=== PATIENT | female | born 1995 | race Caucasian/White ===

== ENCOUNTER 2018-08-05 19:36 | Emergency (ER) | payer MEDICAID ==
[2018-08-05] MEDS ORDERED: ACETAMINOPHEN 500 MG TAB PO ONE (20:06)
[2018-08-05] MEDS ORDERED: LIDOCAINE 4%/MENTHOL 1% PATCH TD ONE (20:06)
[2018-08-05] MEDS ORDERED: fentaNYL 100 MCG/2 ML INJ IVP ONE (20:06)
[2018-08-05] MEDS ORDERED: DIAZEPAM 5 MG TAB PO ONE (20:06)
--- NOTE | 2018-08-05 20:14 | EDPHY ---
General Time Seen by Provider: 08/05/18 19:43 Narrative: CLINICAL IMPRESSION: Right-sided lumbar back strain ASSESSMENT/PLAN: 23-year-old obese female presents to the emergency department with 1 day of atraumatic right low back pain. Patient is tearful and uncomfortable appearing on arrival but nontoxic. No associated fever. She has no midline pain and no reported history of manipulation or surgery to the low back. No associated bowel or bladder incontinence, saddle anesthesia, urinary retention, gait intolerance, foot drop, paresthesias to the lower extremities, abdominal pain, UTI symptoms, hematuria or fever. Pain is reproducible to palpation and worsened by range of motion. Intact distal neurovascular exam in DTRs. Patient received IV analgesics with improvement in her symptoms. I do not suspect this patient has cauda equina, epidural abscess, occult infection, meningitis, nor do I feel she needs an emergent MRI scan. She was given a referral to Neurosurgery and advised to follow up with primary care. Warning signs return to ED sooner discussed in discharge. DIFFERENTIAL DX: Differential diagnosis includes but not limited to muscular pain, herniated disc, spine fracture, cauda equina, epidural abscess, infectious causes, intra- abdominal causes, pyelonephritis and urinary tract infection. ED PROCEDURES: See lab and/or imaging results below NON-traumatic Back Pain Pathway--Low/medium concern for Acute Spinal Emergency ( ASE) High Sensitivity Neuro Exam (HSNE) Cervical pain C1-4: sensation back of head/neck no unilateral decrease in sensation. C5: Deltoid (motor) no unilateral weakness or deficit. C6: Biceps (motor) no unilateral weakness or deficit. C7: Extend wrist/fingers no unilateral weakness or deficit C8: Flex fingers no unilateral weakness or deficit Thoracic pain T1: move fingers apart no unilateral deficit. T2-12: trunk sensationno unilateral deficit. Lumbar pain L1: inner thigh sensation no unilateral weakness or deficits. L2: ADduct thigh (cross legs) no unilateral weakness or deficits. L3: Extend knee no unilateral weakness or deficits. L4: Ankle dorsiflexion no unilateral weakness or deficits. L5: Great toe extension no unilateral weakness or deficits. S1: Flex knee no unilateral weakness or deficits. S3-4: bladder/bowel function no dysfunction. NO DEFICITS = Check Red Flags MINOR (1 pt each) Alcohol abuse 0 points DM 0 points Renal failure 0 point Night pain 0 point 3rd visit in <= 20 days 0 point MAJOR (3 pts each) IVDA no Fever without focus no Recent/current systemic infection no Immunosuppression (physician discretion) no Recent spinal fracture/spinal procedure (ESR is not a good screen for spinal epidural hematoma) no New bladder/bowel incontinence or retention no Total Red Flag score 0 Total Red Flag score <= 3 AND neuro exam is at baseline ---> no MRI is recommended ED COURSE: 9:20 P.M.: Patient reassessed, feeling better, still has some pain but not worse. Would like to start some steroids which she has taken in the past. Would like to have an initial dose tonight. Plan to discharge with steroid prescription, pain meds, muscle relaxers and primary care and neurosurgery follow-up. CHIEF COMPLAINT: Right-sided back pain HPI: 23-year-old female presents to the emergency department with sudden onset atraumatic right low back pain that occurred this morning while she was eating breakfast with her family. Patient reports no recent heavy lifting, exercise routine, or traumatic injury or MVA. She reports taking ibuprofen at 6 :00 p.m. Tonight which did not help the pain. She is able to walk but with increased pain. No reported bowel or bladder incontinence, saddle anesthesia, urinary retention, fever or chills. No dysuria or urgency. Pain does not radiate into abdomen. No history of chronic back pain or prior back injury or surgery. She has had back pain in the distant past that required an ED visit but self resolved. She has never seen a back pain specialist. She reported intermittent paresthesias to the anterior right leg. No reports of epidural steroid injection or procedure to the back. PAST MEDICAL HISTORY: None reported See triage summary and nurse notes for addition applicable history Pertinent Past Surgical History: None reported Family History: Family history of chronic back Social History: Otherwise healthy REVIEW OF SYSTEMS: A full 10 point review of systems was negative except for those mentioned in HPI. PHYSICAL EXAM: General Appearance: Alert, oriented, appropriate, obese, tearful, lying in the bed appears uncomfortable, unable to sit up or stand without significant pain, cooperative, VSS, no hypoxia. Respiratory: There are no retractions, lungs are clear to auscultation. Cardiac: Regular rate and rhythm, no murmurs or gallops. Gastrointestinal: Abdomen is soft, nontender, bowel sounds normal, no masses/ hernia, no rigidity, guarding or focal peritoneal findings. Back: Reproducible tenderness to palpation of the right lumbar spine although exam is limited as patient is unable to roll or sit up due to significant pain. I cannot appreciate midline pain. Negative straight leg raise bilaterally. Patellar DTRs 2+ bilaterally. Strength 5/5 bilaterally. No reported paresthesias to either leg during my exam. Skin: Warm, dry, no rashes, no nodules on palpation. MEDICAL DECISION MAKING: Patient was seen independently. Secondary supervising physician at time of evaluation was: Dr. Hardwick . Diagnosis: Lumbar back strain . New, requires workup Summary: See Assessment and Plan for summary of ED visit Patient Progress: Improved, stable for discharge . - History Smoking Status: Never smoked - Objective Vital Signs: Initial Vital Signs Temperature (C) 36.8 C 08/05/18 19:44 Heart Rate 80 08/05/18 19:44 Respiratory Rate 18 08/05/18 19:44 Blood Pressure 118/49 L 08/05/18 19:44 O2 Sat (%) 98 08/05/18 19:44 O2 Delivery Mode Room Air Allergies/Adverse Reactions: No Known Allergies Allergy (Unverified 08/05/18 19:55) Home Medications: Medication Instructions Recorded Cyclobenzaprine [Flexeril] 10 mg PO TID #15 tab 08/05/18 Hydrocodone/APAP 5/325 [[place] 1 - 2 tab PO Q4H PRN #10 tab 08/05/18 5/325 (*)] predniSONE [Prednisone] 40 mg PO DAILY #20 tablet 08/05/18 Medications Given: Discontinued Medications Acetaminophen (Tylenol) 1,000 mg PO EDNOW ONE Stop: 08/05/18 20:07 Last Admin: 08/05/18 20:14 Dose: 1,000 mg Diazepam (Valium) 5 mg PO EDNOW ONE Stop: 08/05/18 20:07 Last Admin: 08/05/18 20:14 Dose: 5 mg Fentanyl (Sublimaze) 50 mcg IVP EDNOW ONE Stop: 08/05/18 20:07 Last Admin: 08/05/18 20:24 Dose: 50 mcg Miscellaneous Medication (Icy Hot Lidocaine/Menthol 4%/1% Patch) 1 patch TD EDNOW ONE Stop: 08/05/18 20:07 Last Admin: 08/05/18 20:14 Dose: 1 patch Departure - Departure Disposition: Home, Routine, Self-Care Clinical Impression: Lumbar back pain Condition: Good Instructions: Low Back Strain (ED) Additional Instructions: DISCHARGE INSTRUCTIONS FROM YOUR DOCTOR Thank you for visiting our emergency department today. You were treated by a physician housekeeping assistant today and your case was reviewed with our ED Attending physician. Please keep in mind that discharge from the emergency department does not mean that there is nothing wrong - it simply means that we have not identified an emergency condition that requires further evaluation or treatment in the hospital. You should always plan to follow up with primary care for re- evaluation of your condition in the next 2-3 days. If you have been referred to a specialist, please call as soon as possible (today or tomorrow) to schedule your follow up appointment at the appropriate time. PLEASE MAKE A FOLLOW-UP APPOINTMENT WITH PRIMARY CARE THIS WEEK TO RECHECK. A REFERRAL TO NEUROSURGERY WAS ALSO GIVEN IF BACK PAIN PERSISTS. PAIN MEDICATION , MUSCLE RELAXERS WERE PRESCRIBED. STEROIDS WERE ALSO PRESCRIBE, PLEASE TAKE THESE DIRECTED. PLEASE AVOID HEAVY LIFTING OR ACTIVITIES THAT EXACERBATE PAIN. CONSIDER FOLLOW-UP WITH PHYSICAL THERAPY. YOU DO NOT MEET INDICATIONS FOR AN EMERGENT MRI SCAN TONIGHT. PLEASE RETURN TO THE EMERGENCY DEPARTMENT IMMEDIATELY FOR SEVERE PAIN, INABILITY TO WALK, BOWEL OR BLADDER INCONTINENCE, NUMBNESS TO YOUR GROIN REGION, INABILITY TO EMPTY HER BLADDER, FEVERS OR ANY OTHER CONCERN. People present with illnesses and injuries in different ways, and it is always possible that we have missed something. You may always return for re-evaluation if symptoms worsen or if they are not improving or if you develop new/different symptoms. Again, thank you for choosing our emergency department. We hope that you feel better. Referrals: NONE *PRIMARY CARE P,. [Primary Care Provider] - As per Instructions [facility],. [Clinic] - As per Instructions Malachi Lynn MD [Medical Doctor] - As per Instructions Prescriptions: Cyclobenzaprine [Flexeril] 10 mg PO TID #15 tab Hydrocodone/APAP 5/325 [[place] 5/325 (*)] 1 - 2 tab PO Q4H PRN #10 tab PRN Reason: Pain, Moderate predniSONE [Prednisone] 40 mg PO DAILY #20 tablet
[2018-08-05] MEDS ORDERED: PATCH REMOVAL 1 EA PATCH TD SCH (21:00)
[2018-08-05 21:35] VITALS: BP 114/75
[2018-08-06] MEDS ORDERED: predniSONE 20 MG TAB PO ONE (21:21)
== END 2018-08-05 21:35 | disposition home or self-care (01) ==
DX: M54.5 Low back pain (principal)
CPT/HCPCS: 96374; J3010